=== PATIENT | male | born 1990 | race Caucasian/White ===

== ENCOUNTER 2017-02-28 22:00 | Inpatient (IN) | payer OTHER ==
[~2017-02-28] VITALS: Ht 175.3 cm; Wt 69.9 kg
--- NOTE | ~2017-02-28 | DS ---
Unit #: [id number] #: [id number] Patient: MEL HUANG [id number] [place] [address] [id number] I MR#: [id number] NAME: MEL HUANG ROOM: [facility] Age: 26 Sex: M Admission Date: 03/01/2017 : 1990 Discharge Date: 03/17/2017 Attending Physician: Pravin Hairston M.D. Primary Care Physician: Angle Mcgovern DISCHARGE SUMMARY REASON FOR ADMISSION The patient is a 26-year-old male admitted after he had made multiple lacerations on his wrists. HOSPITAL COURSE The patient was admitted to the [address] [place] [address] unit and restarted on previously affected medications including Geodon, Haldol, and Cogentin. This hospital's stay was significantly better than his last during his previous hospital stay the patient had been loud, obnoxious and sexually inappropriate with female peers. During this hospitalization the patient was pleasant and cooperative and cleared rapidly with reinitiation of medications. Of concern was the patient's homeless status and lack of resources outside the hospital. On 03/16 discharge was ordered with the patient taken directly to a "act team" appointment at [facility]. FINAL DIAGNOSES 1. Chronic paranoid schizophrenia. 2. Dental caries. DISPOSITION ON DISCHARGE The patient is discharged on the following medications: 1. Haldol 5 mg twice daily for psychosis. 2. Geodon 80 mg twice daily for psychosis. 3. Cogentin 2 mg twice daily for extrapyramidal symptoms. HurriCaine oral gel apply to painful teeth for tooth pain. Justification to antipsychotics. The patient has failed previous trials of antipsychotic monotherapy. FOLLOWUP CARE Followup to take place through the auspices of [facility]. The patient's prognosis remains a bit cloudy. Dictated by... Pravin Hairston M.D. LUIS/gal TD: 03/15/2017 22:44 JOB #: [id number] Unit #: [id number] #: [id number] Patient: MEL HUANG DISCHARGE SUMMARY Page 1 of 1 X Pravin Hairston MD X DISCHARGE SUMMARY
--- NOTE | ~2017-02-28 | PN ---
Unit #: [id number] #: [id number] Patient: MEL HUANG [id number] [facility] [address] [place] [address] [id number] I MR#: [id number] NAME: MEL HUANG ROOM: [facility]3 Age: 26 Sex: M Admission Date: 03/01/2017 : 1990 Attending Physician: Pravin Hairston M.D. Admitting Physician: Pravin Hairston M.D. Primary Care Physician: Angle Mcgovern PROGRESS NOTES DATE 03/07/2017 DISCUSSION The patient remains compliant with medications and is generally pleasant in his interactions with peers and staff. He does continue to report visual hallucinations from time to time, but reports that his panic attacks "are much better" with his current medication. Dictated by... Pravin Hairston M.D. CB/bzg TD: 03/07/2017 13:03 JOB #: [id number] [facility] PROGRESS NOTES Page 1 of 1 X Pravin Hairston MD PROGRESS NOTE
--- NOTE | ~2017-02-28 | PN ---
Unit #: [id number] #: [id number] Patient: MEL HUANG [id number] [facility] [address] [place] [address] [id number] I MR#: [id number] NAME: MEL HUANG ROOM: [facility]3 Age: 26 Sex: M Admission Date: 03/01/2017 : 1990 Attending Physician: Pravin Hairston M.D. Admitting Physician: Pravin Hairston M.D. Primary Care Physician: Angle Mcgovern PROGRESS NOTES DATE 03/13/2017 DISCUSSION The patient remains pleasant in his interactions with peers and staff. It remains our plan to discharge the patient on Thursday and for him to be taken immediately to an appointment with the "act team" from [facility]. Dictated by... Pravin Hairston M.D. LUIS/kory TD: 03/13/2017 15:07 JOB #: [id number] [facility] PROGRESS NOTES Page 1 of 1 X Pravin Hairston MD X PROGRESS NOTE
--- NOTE | ~2017-02-28 | PN ---
Unit #: [id number] #: [id number] Patient: MEL HUANG [id number] [facility] [address] [place] [address] [id number] I MR#: [id number] NAME: MEL HUANG ROOM: [facility]3 Age: 26 Sex: M Admission Date: 03/01/2017 : 1990 Attending Physician: Pravin Hairston M.D. Admitting Physician: Pravin Hairston M.D. Primary Care Physician: Angle Mcgovern PROGRESS NOTES DATE 03/10/2017 DISCUSSION The patient continues to express great fear of being discharged from the hospital with "nowhere to go." He continues to endorse hopelessness and suicidal ideation but is denying an psychotic symptoms. He has been pleasant and cooperative throughout his interactions with staff. We are pursuing various disposition options with the patient including [facility] and a personal assisted. Dictated by... Pravin Hairston M.D. CB/bzg TD: 03/10/2017 13:59 JOB #: [id number] [facility] PROGRESS NOTES Page 1 of 1 X Pravin Hairston MD X PROGRESS NOTE
--- NOTE | ~2017-02-28 | CO ---
Unit #: [id number] #: [id number] Patient: MEL HUANG [id number] [place] [address] [id number] MR#: [id number] NAME: MEL HUANG ROOM: [facility] Age: 26 Sex: M Admission Date: 03/01/2017 : 1990 Attending Physician: Pravin Hairston M.D. Primary Care Physician: Angle Mcgovern Consultation Date: 03/07/2017 CONSULTATION REPORT REASON FOR CONSULTATION Possible suture removal, right upper extremity. HISTORY OF PRESENT ILLNESS The patient is a 26-year-old male, admitted secondary to acute psychiatric inpatient admission in our care, had sutures x4 to x5, which were placed approximately 7 days ago at an outside facility. We were asked to evaluate the patient for possible suture removal. PAST MEDICAL HISTORY Depression, suicidal ideation. Please see H and P for details in regard to his home medications, allergies, as well as further review of systems. PHYSICAL EXAMINATION The patient's right upper extremity reveals numerous lacerations, which were mainly superficial in origin approximately 5 sutures which are still in place. Wounds appear to be healing. There is no surrounding erythema. No evidence of any acute infection. INITIAL IMPRESSION Right upper extremity laceration, status post suture placement approximately 7 days ago. PLAN At this point in time, these sutures and/or stitches can be removed. There was no indication for any further antibiotics. It appears that the wounds are healing well. Certainly, his underlying behavior may contribute further to increase lacerations and/or improper wound healing. At the present time, these can be removed safely. Thank you, Dr. Hairston for this consultation. Please call with any questions. Dictated by... Aj LoweN/amrita TD: 03/07/2017 18:15 JOB #: [id number] Unit #: [id number] #: [id number] Patient: MEL HUANG CONSULTATION REPORT Page 1 of 1 X Antoinette Engle MD CONSULTATION REPORT
--- NOTE | ~2017-02-28 | PN ---
Unit #: [id number] #: [id number] Patient: MEL HUANG [id number] [facility] [address] [place] [address] [id number] I MR#: [id number] NAME: MEL HUANG ROOM: [facility]3 Age: 26 Sex: M Admission Date: 03/01/2017 : 1990 Attending Physician: Pravin Hairston M.D. Admitting Physician: Pravin Hairston M.D. Primary Care Physician: Angle Mcgovern PROGRESS NOTES DATE 03/08/2017 DISCUSSION The patient remains pleasant and cooperative and reports positive response to his prescribed medications. He is reporting reduction in suicidal ideation and denies any psychotic symptoms today. His progress is encouraging and we are working towards disposition. Dictated by... Pravin Hairston M.D. CB/gal TD: 03/08/2017 22:20 JOB #: [id number] [facility] PROGRESS NOTES Page 1 of 1 X Pravin Hairston MD PROGRESS NOTE
--- NOTE | ~2017-02-28 | PN ---
Unit #: [id number] #: [id number] Patient: MEL HUANG [id number] [facility] [address] [place] [address] [id number] I MR#: [id number] NAME: MEL HUANG ROOM: [facility]3 Age: 26 Sex: M Admission Date: 03/01/2017 : 1990 Attending Physician: Pravin Hairston M.D. Admitting Physician: Pravin Hairston M.D. Primary Care Physician: Angle Mcgovern PROGRESS NOTES DATE 03/11/2017 DISCUSSION The patient is generally pleasant and cooperative with peers and staff and is cooperative with medications. At the same time, he remains hopeless and very anxious regarding his living situation and continues to report feelings of anxiety and hopelessness with some suicidal ideation related to his homeless status and lack of resources. Dictated by... Pravin Hairston M.D. CB/bzg TD: 03/11/2017 14:54 JOB #: [id number] [facility] PROGRESS NOTES Page 1 of 1 X Pravin Hairston MD PROGRESS NOTE
--- NOTE | ~2017-02-28 | PN ---
Unit #: [id number] #: [id number] Patient: MEL HUANG [id number] [facility] [address] [place] [address] [id number] MR#: [id number] NAME: MEL HUANG ROOM: [facility]3 Age: 26 Sex: M Admission Date: 03/01/2017 : 1990 Attending Physician: Pravin Hairston M.D. Admitting Physician: Pravin Hairston M.D. Primary Care Physician: Angle Mcgovern PROGRESS NOTES DATE 03/04/2017 DISCUSSION The patient finally awakens today and is surprisingly calm and cooperative during interview. He requests reinitiation of Seroquel or Abilify which he states he has taken in the past and which he states helps with his auditory hallucinations. He is requesting assistance with placement during discharge. He looks to be a good candidate for possible placement at [facility] or another such facility. I will ask his clinical social work therapist to see him regarding that. In the meantime, we will continue the patient's Geodon and Haldol as he does seem to be doing fairly well on these medications. Dictated by... Pravin Hairston M.D. CB/malgorzata TD: 03/04/2017 14:40 JOB #: [id number] [facility] PROGRESS NOTES Page 1 of 1 X Pravin Hairston MD X PROGRESS NOTE
--- NOTE | ~2017-02-28 | PN ---
Unit #: [id number] #: [id number] Patient: MEL HUANG [id number] [facility] [address] [place] [address] [id number] I MR#: [id number] NAME: MEL HUANG ROOM: [facility]3 Age: 26 Sex: M Admission Date: 03/01/2017 : 1990 Attending Physician: Pravin Hairston M.D. Admitting Physician: Pravin Hairston M.D. Primary Care Physician: Angle Mcgovern PROGRESS NOTES DATE 03/12/2017 DISCUSSION The patient is abed resting comfortably today. Staff reports no management issues. We continue to await word regarding disposition which has been complicated by the patient's lack of a payee. Dictated by... Pravin Hairston M.D. CB/malgorzata TD: 03/12/2017 14:34 JOB #: [id number] [facility] PROGRESS NOTES Page 1 of 1 X Pravin Hairston MD PROGRESS NOTE
--- NOTE | ~2017-02-28 | PN ---
Unit #: [id number] #: [id number] Patient: MEL HUANG [id number] [facility] [address] [place] [address] [id number] I MR#: [id number] NAME: MEL HUANG ROOM: [facility]3 Age: 26 Sex: M Admission Date: 03/01/2017 : 1990 Attending Physician: Pravin Hairston M.D. Admitting Physician: Pravin Hairston M.D. Primary Care Physician: Angle Mcgovern PROGRESS NOTES DATE 03/06/2017 DISCUSSION The patient remains pleasant in his interaction with peers and staff but continues to endorse anxiety, positive suicidal ideation, and visual hallucinations. We continue current treatment. The patient is today agreeable to continue on the Geodon, Haldol combination which seems to be reasonably effective for him with this reinitiation. Dictated by... Pravin Hairston M.D. CB/bzg TD: 03/07/2017 09:00 JOB #: [id number] [facility] PROGRESS NOTES Page 1 of 1 X Pravin Hairston MD X PROGRESS NOTE
--- NOTE | ~2017-02-28 | HP ---
Unit #: [id number] #: [id number] Patient: FREEDOM HUANG [id number] [facility] [address] [place] [address] [id number] I MR#: [id number] NAME: FREEDOM HUANG ROOM: [facility]3 Age: 26 Sex: M Admission Date: 03/01/2017 : 1990 Attending Physician: Pravin Hairston M.D. Admitting Physician: Pravin Hairston M.D. Primary Care Physician: Angle Mcgovern HISTORY AND PHYSICAL HISTORY AND PHYSICAL COMPLETED 03/02/2017 HISTORY OF PRESENT ILLNESS Freedom is a 26-year-old male, admitted on 03/01/[address] [place] [address] for depression, suicidal ideation, and self-injuring behaviors. PAST MEDICAL HISTORY None. PAST SURGICAL HISTORY None. SOCIAL HISTORY He is currently single and homeless. Denies tobacco or alcohol or illegal drug use. FAMILY HISTORY Noncontributory. REVIEW OF SYSTEMS CONSTITUTIONAL: No fever or chills. HEENT: Denies any sore throat, ear pain or runny nose. CARDIOVASCULAR: Denies chest pain, irregular heart rhythm or palpitations. CHEST: Denies shortness of breath or cough. No hemoptysis. GASTROINTESTINAL: Denies nausea, vomiting, diarrhea or chronic constipation. ENDOCRINE: Denies history of increased thirst or urination. No recent significant weight loss or gain. GENITOURINARY: Denies dysuria, frequency, or hematuria. SKIN: Denies any rashes. HEMATOLOGIC: Denies history of increased bleeding or bruising. MUSCULOSKELETAL: Denies any hot, swollen joints. No generalized muscle pain. NEUROLOGIC: Denies problems with vision or speech. No frequent, severe headaches. No numbness, tingling or weakness in any extremities. Denies loss of bladder or bowel control. CURRENT MEDICATIONS 1. Geodon 2. Haldol 3. Cogentin Unit #: [id number] #: [id number] Patient: FREEDOM HUANG ALLERGIES No known drug allergies. PHYSICAL EXAMINATION GENERAL: Alert, oriented, and no acute distress. VITAL SIGNS: Blood pressure 124/94, heart rate 87, respirations 18. HEIGHT: 5 feet 8 inches. WEIGHT: 195 pounds. SKIN: Warm and dry without rash or lesion. HEENT: Normocephalic. TMs not viewed. Oral and nasal passages clear. Conjunctivae clear. PERRLA. EOMs intact. NECK: Supple without lymphadenopathy or thyromegaly. HEART: Regular rate and rhythm without murmur. LUNGS: Clear. ABDOMEN: Soft, nontender. : Not done. EXTREMITIES: No evidence of cyanosis, clubbing or edema. Moves all without focal deficit. NEUROLOGICAL: Grossly within normal limits. Cranial Nerves: II: Visual johnson are intact. III, IV AND : Extraocular movements are intact. Pupils are equal, round and reactive to light. V: Facial sensation is grossly normal. VII: Facial movements and expression are normal. VIII: Auditory acuity grossly intact. IX, X: Uvula is midline. Phonation is normal. XI: Patient shrugs shoulders and turns head normally. XII: Tongue protrudes in the midline. Sensory and Motor Function: Sensory and motor sensation is grossly normal. Motor: moves all extremities well. Coordination: Gait is normal. Deep Tendon Reflexes: Intact. IMPRESSION Psychiatric admission. RECOMMENDATIONS Psychiatric, per psychiatrist. MEDICAL No contraindications to participating in facility's activities. MEDICAL PROGNOSIS Good. MEDICAL CONDITION Stable. Dictated by... Cindy Moncada/nida TD: 03/02/2017 12:25 JOB #: [id number] Unit #: [id number] #: [id number] Patient: FREEDOM HUANG HISTORY AND PHYSICAL Page 1 of 1 X CHANTAL REIS APRN X HISTORY AND PHYSICAL
--- NOTE | ~2017-02-28 | PA ---
Unit #: [id number] #: [id number] Patient: MEL HUANG [id number] [facility] [address] [place] [address] [id number] I MR#: [id number] NAME: MEL HUANG ROOM: [facility]3 Age: 26 Sex: M Admission Date: 03/01/2017 : 1990 Date of Assessment: 03/02/2017 Attending Physician: Pravin Hairston M.D. Admitting Physician: Pravin Hairston M.D. Primary Care Physician: Angle Mcgovern PSYCHIATRIC ASSESSMENT REASON FOR AMDISSION The patient is a 26-year-old white male admitted after sustaining multiple lacerations on his wrists. CHIEF COMPLAINT None given. INFORMANT Chart, patient refuses to arouse for interview. HISTORY OF PRESENT ILLNESS The patient is a 26-year-old white male admitted in transfer from [facility]. He is known to this facility from one previous admission this having taken place in July of 2016. The patient has a history of positive response to Geodon and Haldol but his compliance to these medications has always been somewhat questionable. The patient is today sleeping soundly and cannot be aroused for interview. For more complete history of present illness please refer to previous dictated notes. PAST PSYCHIATRIC HISTORY Reviewed no changes. PAST MEDICAL HISTORY Reviewed no changes. MEDICATIONS 1. Geodon 2. Haldol 3. Cogentin ALLERGIES None. FAMILY HISTORY Reviewed no changes. SOCIAL HISTORY Reviewed no changes. MENTAL STATUS EXAMINATION At this time reveals the patient to be a soundly sleeping disheveled white male appearing his stated age of (1) lacerations on the patient's Unit #: [id number] #: [id number] Patient: MEL HUANG forearms bilaterally. The patient refuses to arouse for interview and further mental status examination is unfortunately not possible at this time. ASSETS AND LIABILITIES ASSETS: To be assessed. LIABILITIES: Lack of resources. DIAGNOSTIC IMPRESSION Chronic paranoid schizophrenia. PSYCHIATRIC PLAN/TREATMENT GOALS The patient remains hospitalized for safety and stabilization. We will restart previously prescribed medications including Geodon, Haldol and Cogentin. ESTIMATED LENGTH OF STAY Five to seven days with followup to take place through the auspices of community mental health resources. Dictated by... Aj Vides TD: 03/02/2017 23:54 JOB #: [id number] PSYCHIATRIC ASSESSMENT Page 1 of 1 X Pravin Hairston MD PSYCHIATRIC ASSESSMENT
--- NOTE | ~2017-02-28 | PN ---
Unit #: [id number] #: [id number] Patient: MEL HUANG [id number] [facility] [address] [place] [address] [id number] I MR#: [id number] NAME: MEL HUANG ROOM: [facility]3 Age: 26 Sex: M Admission Date: 03/01/2017 : 1990 Attending Physician: Pravin Hairston M.D. Admitting Physician: Pravin Hairston M.D. Primary Care Physician: Angle Mcgovern PROGRESS NOTES DATE 03/03/2017 DISCUSSION The patient remains abed with a blanket pulled over his head. Multiple attempts to arouse the patient are unsuccessful. During previous hospitalizations, the patient was loud and intrusive, but this behavior has not been evident during this hospitalization. Dictated by... Pravin Hairston M.D. CB/malgorzata TD: 03/03/2017 14:05 JOB #: [id number] [facility] PROGRESS NOTES Page 1 of 1 X Pravin Hairston MD X PROGRESS NOTE
--- NOTE | ~2017-02-28 | PN ---
Unit #: [id number] #: [id number] Patient: MEL HUANG [id number] [facility] [address] [place] [address] [id number] I MR#: [id number] NAME: MEL HUANG ROOM: [facility]3 Age: 26 Sex: M Admission Date: 03/01/2017 : 1990 Attending Physician: Pravin Hairston M.D. Admitting Physician: Pravin Hairston M.D. Primary Care Physician: Angle Mcgovern PROGRESS NOTES DATE 03/09/2017 DISCUSSION The patient remains pleasant and cooperative in his interactions with peers and staff. We continue to await word regarding disposition options for the patient. Dictated by... Pravin Hairston M.D. CB/gal TD: 03/09/2017 21:21 JOB #: [id number] [facility] PROGRESS NOTES Page 1 of 1 X Pravin Hairston MD X PROGRESS NOTE
--- NOTE | ~2017-02-28 | PN ---
Unit #: [id number] #: [id number] Patient: MEL HUANG [id number] [facility] [address] [place] [address] [id number] I MR#: [id number] NAME: MEL HUANG ROOM: [facility]3 Age: 26 Sex: M Admission Date: 03/01/2017 : 1990 Attending Physician: Pravin Hairston M.D. Admitting Physician: Pravin Hairston M.D. Primary Care Physician: Angle Mcgovern PROGRESS NOTES DATE 03/14/2017 DISCUSSION The patient is abed resting comfortably today. We plan on hand candy cutter discharge Thursday. I spoke with the patient to meet with the "active team" from [facility]. Dictated by... Pravin Hairston M.D. CB/malgorzata TD: 03/14/2017 12:31 JOB #: [id number] [facility] PROGRESS NOTES Page 1 of 1 X Pravin Hairston MD PROGRESS NOTE
--- NOTE | ~2017-02-28 | PN ---
Unit #: [id number] #: [id number] Patient: MEL HUANG [id number] [facility] [address] [place] [address] [id number] I MR#: [id number] NAME: MEL HUANG ROOM: [facility]3 Age: 26 Sex: M Admission Date: 03/01/2017 : 1990 Attending Physician: Pravin Hairston M.D. Admitting Physician: Pravin Hairston M.D. Primary Care Physician: Angle Mcgovern PROGRESS NOTES DATE 03/05/2017 DISCUSSION The patient continues to report positive suicidal ideation and also reports increasing visual hallucinations stating that he is seeing people in his room. He is as noted previously pleasant and cooperative. We continue to await word regarding the patient's previous prescriptions for Abilify and Seroquel. In the meantime, I am continuing Geodon and Haldol as the patient's behavior at least is well controlled with this combination though he continues as noted previously to endorse both suicidal ideation and visual hallucinations. Dictated by... Pravin Hairston M.D. CB/kory TD: 03/05/2017 16:16 JOB #: [id number] [facility] PROGRESS NOTES Page 1 of 1 X Pravin Hairston MD X PROGRESS NOTE
== END 2017-03-16 10:13 | disposition home or self-care (01) | DRG 885 ==
LOC: P1S 03-01 19:01 → SEDOF 03-01 21:45 → P1S 03-01 22:03
DX: F20.0 Paranoid schizophrenia (principal); R45.851 Suicidal ideations; Z59.0 Homelessness; K02.9 Dental caries, unspecified; S41.111D Laceration without foreign body of right upper arm, subsequent encounter; X58.XXXD Exposure to other specified factors, subsequent encounter
CPT/HCPCS: J3486

== ENCOUNTER 2017-03-17 19:49 | Emergency (ER) | payer OTHER ==
[~2017-03-17] VITALS: Ht 172.7 cm; Wt 72.6 kg
[2017-03-17 21:37] LABS: BASOPHIL# 0.1 X10e3 (0-0.3); BASOPHIL% 0.7 % (0-2.5); EOSINOPHIL# 0.2 X10e3 (0-0.7); EOSINOPHIL% 2.5 % (0.0-7.0); HEMATOCRIT 39.2 % (38.0-50.0); HEMOGLOBIN 13.5 gm/dL (13.0-16.0); LYMPHOCYTE# 2.1 X10e3 (1.0-3.5); LYMPHOCYTE% 27.7 % (17.0-45.0); MEAN CELL VOLUME 90.9 FL (83-96); MEAN CORPUSCULAR HEMOGLOBIN 31.3 PG (28-34); MEAN CORPUSCULAR HGB CONC 34.4 g/dL (30-36); MEAN PLATELET VOLUME 10.1 FL (6.5-11.5); MONOCYTE# 0.8 X10e3 (0-1.0); MONOCYTE% 10.8 % (3.0-12.0); NEUTROPHIL# 4.3 X10e3 (1.5-7.1); NEUTROPHIL% 58.3 % (40-75); PLATELET COUNT 127 X10e3 (140-420); RED BLOOD COUNT 4.31 X10e (3.90-5.60); RED CELL DISTRIBUTION WIDTH 13.4 % (11.0-15.5); WHITE BLOOD COUNT 7.4 X10e3 (4.0-10.5)
[2017-03-17 21:47] LABS: DIFF IND NO
[2017-03-17 21:48] LABS: AMPHETAMINE NEG (NEG); BARBITURATES NEG (NEG); BENZODIAZEPINES NEG (NEG); COCAINE NEG (NEG); MARIJUANA NEG (NEG); OPIATES NEG (NEG); TRICYCLIC ANTIDEPRESSANTS NEG (NEG); U METHADONE NEG (NEG)
[2017-03-17 22:03] LABS: ALBUMIN SERUM 4.6 g/dL (3.5-5.0); ALKALINE PHOSPHATASE 31 U/L (32-92); ALT (SGPT) 16 U/L (10-40); AST (SGOT) 23 U/L (10-42); BILIRUBIN, DIRECT 0.2 mg/dL (0.0-0.2); BILIRUBIN,INDIRECT 1.3 mg/dL (0.0-0.9); BILIRUBIN,TOTAL 1.5 mg/dL (0.2-2.0); BLOOD UREA NITROGEN 17 mg/dL (9-23); CARBON DIOXIDE 25 mmol/L (22-31); CHLORIDE 103 mmol/L (100-111); GLOM FILT RATE Estimated 104.2 mL/min (>60); GLUCOSE FASTING 91 mg/dL (70-110); PROTEIN TOTAL SERUM 7.4 g/dL (6.0-8.3); SALICYLATE <4.0 mg/dL; SODIUM 138 mmol/L (135-145)
[2017-03-17 22:05] LABS: ACETAMINOPHEN <10 ug/mL; ALCOHOL BLOOD <5 mg/dL (0)
== END 2017-03-18 01:43 ==
LOC: CED 19:49
PROVIDERS: Emergency Medicine
DX: F33.1 Major depressive disorder, recurrent, moderate (principal); F41.9 Anxiety disorder, unspecified; F20.9 Schizophrenia, unspecified
CPT/HCPCS: 36415; 80048; 80076; 80307; 85025; 96360; 99285; G0480

== ENCOUNTER 2017-03-18 01:58 | Inpatient (IN) | payer OTHER ==
--- NOTE | ~2017-03-18 | PN ---
Unit #: [id number] #: [id number] Patient: MEL HUANG [id number] [facility] [address] [place] [address] [id number] I MR#: [id number] NAME: MEL HUANG ROOM: [facility]5 Age: 26 Sex: M Admission Date: 03/18/2017 : 1990 Attending Physician: Luke Herrera M.D. Admitting Physician: Luke Herrera M.D. Primary Care Physician: Angle Mcgovern PROGRESS NOTES DATE 03/26/2017 DISCUSSION Upon today's assessment this patient was found sitting in the dayroom. His appearance is very disheveled and unkempt and he has poor personal hygiene at this time. He reports that he has been feeling much better after his attending Dr. Herrera has adjusted his medications. He reports that the one medication that he is waiting to reinitiate is the lithium and ask if that could be provided today. This patient stated that other than that he has been sleeping well and denies homicidal or suicidal ideations at this time and verbalized no plan or intent. He also denies or visual hallucinations and no overt symptoms of psychosis was noted. PLAN Initiate lithium 300 mg b.i.d. with a lithium level ordered to be obtained this coming Thursday. Dictated by... DELMI Avila/gal TD: 03/30/2017 05:32 JOB #: [id number] [facility] PROGRESS NOTES Page 1 of 1 X KERA SHER PROGRESS NOTE
--- NOTE | ~2017-03-18 | PA ---
Unit #: [id number] #: [id number] Patient: FREEDOM HUANG [id number] [facility] [address] [place] [address] [id number] I MR#: [id number] NAME: FREEDOM HUANG ROOM: P125 Age: 26 Sex: M Admission Date: 03/18/2017 : 1990 Date of Assessment: 03/18/2017 Attending Physician: Luke Herrera M.D. Admitting Physician: Luke Herrera M.D. Primary Care Physician: Angle Mcgovern PSYCHIATRIC ASSESSMENT DATE OF SERVICE 03/18/2017. INFORMANTS The patient, unreliable and OLOP, reliable. CHIEF COMPLAINT Self-harm. HISTORY OF PRESENT ILLNESS Mr. Huang is a 26-year-old man, who was just discharged from this facility and showed up at [employer] where he bought a knife and then went to a local [employer] store where he cut himself on the wrist. He was unable to contract for safety and was readmitted for stabilization after he was assessed by EMS. PAST PSYCHIATRIC HISTORY As noted, the patient was just discharged from this facility yesterday. He has had a long episode of treatment for chronic paranoid schizophrenia and has been taking Geodon, Haldol, and Cogentin. FAMILY PSYCHIATRIC HISTORY None reported. SOCIAL HISTORY The patient was adopted from the [facility] and has minimal knowledge of his biological family. He is homeless in the community. PAST MEDICAL HISTORY No chronic medical problems. MEDICATIONS Please see MAR. ALLERGIES No known medication allergies. SUBSTANCE USE HISTORY There is no recorded history of chemical dependence. MENTAL STATUS EXAMINATION Freedom presented as a mildly disheveled man, who appeared his stated age. He was irritable and generally uncooperative with the examination. His Unit #: [id number] #: [id number] Patient: FREEDOM HUANG speech was loud and heavily accented, but easily understood. Musculoskeletal examination demonstrated psychomotor agitation. His mood was irritable and angry with a flat affect. He was alert and oriented to person, location, and situation. Memory and concentration were only fair. His thought processes were rambling and paranoid. He denied any further suicidal ideation and was threatening toward others. Insight and judgment, poor. Fund of knowledge and abstraction, poor. ASSETS AND LIABILITIES The patient knows local resources and has a history of response to treatment. Liabilities include apparent noncompliance and recent suicide attempt. ADMITTING DIAGNOSES AXIS I: Schizophrenia, paranoid type. AXIS II: No diagnosis. AXIS III: Self-inflicted lacerations. AXIS IV: AXIS V: PSYCHIATRIC PLAN Freedom was admitted and placed on psychosis and suicide precautions. Haldol, Geodon, and Cogentin will be restarted as per Dr. Hairston's treatment plan. He will have a physical examination and laboratory studies and will be monitored closely for aggression. TREATMENT GOALS Resolution of aggression, improvement in insight, and improvement in coping skills. FOLLOWUP The patient will follow up with community mental health. ESTIMATED LENGTH OF STAY 5 days. Dictated by... Luke Herrera M.D. SAWYER/amrita TD: 03/19/2017 11:49 JOB #: [id number] PSYCHIATRIC ASSESSMENT Page 1 of 1 X Luke Herrera MD X PSYCHIATRIC ASSESSMENT
--- NOTE | ~2017-03-18 | HP ---
Unit #: [id number] #: [id number] Patient: FREEDOM HUANG [id number] [facility] [address] [place] [address] [id number] I MR#: [id number] NAME: FREEDOM HUANG ROOM: [facility]5 Age: 26 Sex: M Admission Date: 03/18/2017 : 1990 Attending Physician: Luke Herrera M.D. Admitting Physician: Luke Herrera M.D. Primary Care Physician: Angle Mcgovern HISTORY AND PHYSICAL Freedom is a 26 year old admitted to [address] [place] [address] with psychotic behavior. He was just discharged from this facility after treatment for the same. Patient was seen and H and P dated 03/02/17 was reviewed. This is current. No changes. Please see H and P dated 03/02/17. Dictated by... Jeannie Sanders P.A.-C. for Aj Lowe/kory TD: 03/18/2017 15:34 JOB #: [id number] HISTORY AND PHYSICAL Page 1 of 1 X Jeannie Sanders HISTORY AND PHYSICAL
--- NOTE | ~2017-03-18 | PN ---
Unit #: [id number] #: [id number] Patient: FREEDOM HUANG [id number] [facility] [address] [place] [address] [id number] I MR#: [id number] NAME: FREEDOM HUANG ROOM: [facility]5 Age: 26 Sex: M Admission Date: 03/18/2017 : 1990 Attending Physician: Luke Herrera M.D. Admitting Physician: Luke Herrera M.D. Primary Care Physician: Angle Mcgovern PROGRESS NOTES DATE 03/24/2017 DISCUSSION Freedom continues to be irritable about his medications and insists on being "Abilify and Paxil." He is no longer accepting Haldol and Cogentin from the nursing staff but is compliant with Seroquel. His mood is irritable with a loud but terse speech pattern. He is alert and fully oriented. His memory and concentration are fair. His thought processes are irritable with evidence of paranoia and psychosis. ASSESSMENT Schizophrenia, paranoid type. PLAN To accommodate the patient's request, we will discontinue Haldol and Cogentin and add Abilify 10 mg with Paxil 20 mg to his medication pattern. Dictated by... Luke Herrera M.D. [facility]/theoh TD: 03/25/2017 15:13 JOB #: [id number] [facility] PROGRESS NOTES Page 1 of 1 X Luke Herrera MD PROGRESS NOTE
--- NOTE | ~2017-03-18 | HP ---
Unit #: [id number] #: [id number] Patient: FREEDOM HUANG [id number] [facility] [address] [place] [address] [id number] I MR#: [id number] NAME: FREEDOM HUANG ROOM: [facility]5 Age: 26 Sex: M Admission Date: 03/18/2017 : 1990 Attending Physician: Luke Herrera M.D. Admitting Physician: Luke Herrera M.D. Primary Care Physician: Angle Mcgovern HISTORY AND PHYSICAL Freedom is a 26 year old admitted to [address] [place] [address] with psychotic behavior. He was just discharged from this facility after treatment for the same. Patient was seen and H and P dated 03/02/17 was reviewed. This is current. No changes except just after discharge he sustained self-inflicted laceration to both of his arms. These areas were sutured in local emergency room. The areas show good skin approximation without increased redness, swelling, heat or pus. Care of these areas will be to keep them clean with soap and water. Suture removal in 5 to 7 days. Please see H and P dated 03/02/17 for complete history and physical exam. Dictated by... Jeannie Sanders P.A.-C. for Aj Lowe/kory TD: 03/18/2017 18:16 JOB #: [id number] HISTORY AND PHYSICAL Page 1 of 1 X Jeannie Sanders X HISTORY AND PHYSICAL
--- NOTE | ~2017-03-18 | PN ---
Unit #: [id number] #: [id number] Patient: FREEDOM HUANG [id number] [facility] [address] [place] [address] [id number] I MR#: [id number] NAME: FREEDOM HUANG ROOM: [facility]5 Age: 26 Sex: M Admission Date: 03/18/2017 : 1990 Attending Physician: Luke Herrera M.D. Admitting Physician: Luke Herrera M.D. Primary Care Physician: Angle Mcgovern PROGRESS NOTES DATE 03/25/2017 DISCUSSION Freedom is sleeping heavily this morning and is difficult to wait for an interview. According to staff he had a period of being upset last night but quickly calmed. He is compliant with medications and has no significant adverse side effects. He continues to remain psychosis. ASSESSMENT Schizophrenia paranoid type. PLAN Continue current medication. Dictated by... Aj Martinez/gal TD: 03/25/2017 23:05 JOB #: [id number] [facility] PROGRESS NOTES Page 1 of 1 X Luke Herrera MD PROGRESS NOTE
--- NOTE | ~2017-03-18 | CO ---
Unit #: [id number] #: [id number] Patient: [facility] HUANG [id number] [facility] [address] [place] [address] [id number] I MR#: [id number] NAME: MEL HUANG ROOM: [facility] Age: 26 Sex: M Admission Date: 03/18/2017 : 1990 Attending Physician: Luke Herrera M.D. Primary Care Physician: Angle Mcgovern Consultation Date: 03/25/2017 CONSULTATION REPORT REASON FOR CONSULTATION Suture removal. SUBJECTIVE The patient states that he has had sutures then for about 9 to 10 days after the lacerations were made to his left wrist and forearm. OBJECTIVE GENERAL: The patient is awake and alert, in no acute distress. VITAL SIGNS: Temperature 98.1, heart rate 72, respirations 16, blood pressure 95/67. HEENT: Head is atraumatic, normocephalic. Pupils equal, round, reactive. Extraocular movements are intact. No drainage from ears or nares. NECK: Supple. Trachea is midline. CHEST: Lungs are clear to auscultation bilaterally. CARDIOVASCULAR: S1, S2. Regular rate and rhythm. SKIN: The patient has lacerations on his left forearm with sutures. It is scabbed over. ASSESSMENT Laceration with sutures. PLAN At this time, the patient is refusing to have his sutures removed by the nursing staff. It does look like the patient has been scratching and rubbing his forearm. At this time, we will ask nursing to help keep the laceration clean and apply antibiotic ointment as needed. Dictated by... Jaye Quiñones A.P.R.N. for Antoinette Engle M.D. AM/amrita TD: 03/25/2017 15:59 JOB #: [id number] Unit #: [id number] #: [id number] Patient: MEL HUANG CONSULTATION REPORT Page 1 of 1 X Jaye Quiñones APRN X CONSULTATION REPORT
--- NOTE | ~2017-03-18 | PN ---
Unit #: [id number] #: [id number] Patient: MEL HUANG [id number] [facility] [address] [place] [address] [id number] I MR#: [id number] NAME: MEL HUANG ROOM: [facility]5 Age: 26 Sex: M Admission Date: 03/18/2017 : 1990 Attending Physician: Luke Herrera M.D. Admitting Physician: Luke Herrera M.D. Primary Care Physician: Angle Mcgovern PROGRESS NOTES DATE 03/30/2017 DISCUSSION Upon today's assessment, Mr. Huang was found ambulating the hallway appearing in no apparent distress. He denies auditory/visual hallucinations and no overt symptoms of psychosis was noted from Mr. Huang and he denies suicidal/homicidal ideations and verbalizes no plan or intent. Mr. Huang shows improved hygiene but is still somewhat disheveled in appearance. His affect is constricted and his mood is congruent to affect. Mr. Huang continues to be focused on discharge and follow up with a facility named [facility] which he reports he has stayed at long-term before. PLAN Continue to monitor Mr. Huang for signs and symptoms of psychosis as well as q 15 minute checks for safety. Dictated by... DELMI Avila/kory TD: 04/02/2017 23:14 JOB #: [id number] [facility] PROGRESS NOTES Page 1 of 1 X KERA SHER PROGRESS NOTE
--- NOTE | ~2017-03-18 | PN ---
Unit #: [id number] #: [id number] Patient: MEL HUANG [id number] [facility] [address] [place] [address] [id number] I MR#: [id number] NAME: MEL HUANG ROOM: [facility]5 Age: 26 Sex: M Admission Date: 03/18/2017 : 1990 Attending Physician: Luke Herrera M.D. Admitting Physician: Luke Herrera M.D. Primary Care Physician: Angle Mcgovern PROGRESS NOTES DATE 03/27/2017 DISCUSSION Upon today's assessment the patient was found ambulating the hallways. He was alert and oriented to person, place and general circumstances at this time. He stated that he denied auditory or visual hallucinations at this time and no overt symptoms of psychosis was noted. The patient also denied suicidal or homicidal ideation and he denied thoughts of self-harm. He reports that he would like to have his grandparents drop him off with some clothes so that he can change and stated that he had been in the same pair of clothes since he was admitted to this unit. His appearance is very disheveled at this time and attention to personal hygiene was encouraged. The patient had no further complaints. PLAN Continue to monitor the patient for SI/HI and thoughts of self-harm and continue to monitor the patient q 15 minutes for safety. Dictated by... DELMI Avila/gal TD: 03/31/2017 04:33 JOB #: [id number] [facility] PROGRESS NOTES Page 1 of 1 X KERA SHER PROGRESS NOTE
--- NOTE | ~2017-03-18 | PN ---
Unit #: [id number] #: [id number] Patient: MEL HUANG [id number] [facility] [address] [place] [address] [id number] MR#: [id number] NAME: MEL HUANG ROOM: [facility]5 Age: 26 Sex: M Admission Date: 03/18/2017 : 1990 Attending Physician: Luke Herrera M.D. Admitting Physician: Luke Herrera M.D. Primary Care Physician: Angle Mcgovern PROGRESS NOTES DATE OF SERVICE 03/21/2017 DISCUSSION Luisito continues to be isolative in his room but has not been causing any disturbances on the unit. He is sleeping heavily this morning and awakens only briefly for an interview. He reiterates that he wants to be on "Abilify and Paxil" as well as lithium. He is alert and fully oriented. Memory and concentration are fair to poor and his thought processes are psychotic. ASSESSMENT Schizophrenia paranoid type. PLAN Continue current treatment plan. Dictated by... Aj Martinez/gal TD: 03/25/2017 22:32 JOB #: [id number] [facility] PROGRESS NOTES Page 1 of 1 X Luke Herrera MD PROGRESS NOTE
--- NOTE | ~2017-03-18 | PN ---
Unit #: [id number] #: [id number] Patient: MEL HUANG [id number] [facility] [address] [place] [address] [id number] I MR#: [id number] NAME: MEL HUANG ROOM: [facility] Age: 26 Sex: M Admission Date: 03/18/2017 : 1990 Attending Physician: Luke Herrera M.D. Admitting Physician: Luke Herrera M.D. Primary Care Physician: Angle Mcgovern PROGRESS NOTES DATE OF SERVICE: 03/29/2017 Upon today's assessment, the patient was found lying in bed, appearing in no apparent discomfort. He was awake and oriented to person, place and general circumstance. He reports at this time and asked if he can discontinue our discharge tomorrow, the , and I explained to him that his discharge was not planned tomorrow and in fact we were doing a blood draw with a lithium level on 03/30/2017, in the a.m. and following his attending's return, he may adjust his medications appropriately and the patient verbalized understanding at that time. He reports no suicidal or homicidal ideations at this time or feelings of self-harm. He denies auditory or visual hallucinations. No overt symptoms of psychosis were noted at this time. He reports an adequate appetite and adequate rest and is noted that hygiene is somewhat improved. PLAN Continue to monitor the patient for suicidal ideation and self-harm, q.15 minutes for safety and obtain lithium level in the a.m. Dictated by... Sonam Sher APRN for Luke Herrera M.D. KARLA/amrita TD: 03/30/2017 07:53 JOB #: [id number] [facility] PROGRESS NOTES Page 1 of 1 X SONAM SHER PROGRESS NOTE
--- NOTE | ~2017-03-18 | PN ---
Unit #: [id number] #: [id number] Patient: FREEDOM HUANG [id number] [facility] [address] [place] [address] [id number] I MR#: [id number] NAME: FREEDOM HUANG ROOM: [facility]5 Age: 26 Sex: M Admission Date: 03/18/2017 : 1990 Attending Physician: Luke Herrera M.D. Admitting Physician: Luke Herrera M.D. Primary Care Physician: Angle Mcgovern PROGRESS NOTES DATE 03/23/2017 DISCUSSION Freedom continues to be isolative in bed and is erratically compliant with his medications. He is alert and fully oriented with an irritable and angry mood and clearly psychotic thought processes. He has not been physically aggressive or fpn-dx-rafajix on the unit. ASSESSMENT Schizophrenia, paranoid type. PLAN Continue current treatment plan. Dictated by... Luke Herrera M.D. SAWYER/kory TD: 03/25/2017 17:19 [facility] [id number] [facility] Page 1 of 1 X Luke Herrera MD PROGRESS NOTE
--- NOTE | ~2017-03-18 | PN ---
Unit #: [id number] #: [id number] Patient: MEL HUANG [id number] [facility] [address] [place] [address] [id number] I MR#: [id number] NAME: MEL HUANG ROOM: [facility]5 Age: 26 Sex: M Admission Date: 03/18/2017 : 1990 Attending Physician: Luke Herrera M.D. Admitting Physician: Luke Herrera M.D. Primary Care Physician: Angle Mcgovern PROGRESS NOTES DATE 03/28/2017 DISCUSSION Upon today's assessment the patient was found ambulating in the hallway. He smiles at this provider and stated that he felt better now that he was able to have clean clothes dropped off and recently took a shower. He reports that he has been medication compliant and feels that the medications that his attending has him on are effective at this time. At this time he denies suicidal or homicidal ideations and thoughts of self-harm. He denies auditory or visual hallucinations and no overt symptoms of psychosis was noted. PLAN Continue to monitor Mr. Huang q 15 minutes for safety as well as signs and symptoms of psychosis and self-harm and lithium lab is planned for a lithium draw and subsequent labs are planned for this Thursday to assess level and adjust medications as needed. Dictated by... DELMI Avila/gal TD: 03/31/2017 05:07 JOB #: [id number] [facility] PROGRESS NOTES Page 1 of 1 X KERA SHER PROGRESS NOTE
[2017-03-19 14:46] LABS: TMH HEPATITIS B SURFACE AG -JH Negative (Negative); TMH HEPATITIS C AB - JH Negative (Negative)
== END 2017-04-01 13:45 | disposition home or self-care (01) | DRG 885 ==
LOC: P1S 01:58
PROVIDERS: Psychiatry & Neurology Psychiatry
DX: F20.0 Paranoid schizophrenia (principal); Z59.0 Homelessness; S51.812D Laceration without foreign body of left forearm, subsequent encounter
CPT/HCPCS: 80178; 86803; 87340; 87806; J2060; J3486